=== PATIENT | male | born 1960 | race African-American/Black ===

== ENCOUNTER 2021-01-29 07:14 | Inpatient (IN) | payer OTHER ==
[~2021-01-29] VITALS: Ht 182.9 cm; Wt 79.4 kg
[2021-01-29 07:45] LABS: HEMOGLOBIN 16.4 gm/dl (14.0-17.5); RED BLOOD COUNT 5.21 M/UL (4.20-5.50)
[2021-01-29 08:07] LABS: BUN/CREATININE RATIO 13 (0-10)
[2021-01-29] MEDS ORDERED: POTASSIUM CITR10 ME1 PO (12:20)
[2021-01-29] MEDS ORDERED: FUROSEMIDE20 MG PO (12:22)
[2021-01-29] MEDS ORDERED: XARELTO20 MG PO (12:22)
[2021-01-29] MEDS ORDERED: CARDIZEM CD240 MG PO (12:23)
[2021-01-29] MEDS ORDERED: LISINOPRIL10 MG PO (12:23)
[2021-01-30 07:59] LABS: RED BLOOD COUNT 4.8 M/UL (4.20-5.50); WHITE BLOOD COUNT 4.7 K/UL (4.5-11.0)
[2021-01-30 08:22] LABS: BUN/CREATININE RATIO 14 (0-10)
[2021-01-30] MEDS ORDERED: CARDIZEM CD240 MG PO (11:00)
[2021-01-30] MEDS ORDERED: ASPIRIN EC81 MG PO (11:00)
[2021-01-30] MEDS ORDERED: LISINOPRIL10 MG PO (11:00)
== END 2021-01-30 12:55 | disposition home or self-care (01) | DRG 291 ==
LOC: ER1 07:14 → CDU 09:13 → PROG CARE 09:13
PROVIDERS: Physician Assistant; ADMIT Internal Medicine
PROC: 5A09457 Assistance with Respiratory Ventilation, 24-96 Consecutive Hours, Continuous Positive Airway Pressure (ICD-10-PCS; principal; 2021-01-29)
DX: I11.0 Hypertensive heart disease with heart failure (principal); J96.01 Acute respiratory failure with hypoxia; I47.1 Supraventricular tachycardia; I50.23 Acute on chronic systolic (congestive) heart failure; Z20.822 Contact with and (suspected) exposure to COVID-19; I48.0 Paroxysmal atrial fibrillation; E87.6 Hypokalemia; I08.0 Rheumatic disorders of both mitral and aortic valves; I27.20 Pulmonary hypertension, unspecified; D69.6 Thrombocytopenia, unspecified; I16.0 Hypertensive urgency; Z79.899 Other long term (current) drug therapy; Z82.49 Family history of ischemic heart disease and other diseases of the circulatory system; Z79.01 Long term (current) use of anticoagulants; Z79.82 Long term (current) use of aspirin; Z79.52 Long term (current) use of systemic steroids
CPT/HCPCS: ECHO; 0240U; 36415; 36600; 71045; 80048; 80053; 82550; 82553; 82803; 83735; 83874; 83880; 84439; 84443; 84484; 85025; 93005; 93306; 94660; 94664; 94760; 96374; 96375; 99285; J0153; J1940; J2270; J2405